=== PATIENT | male | born 1950 | race Caucasian/White ===

== ENCOUNTER 2022-05-17 14:39 | Day surgery (SDC) | payer MEDICARE ==
[2022-05-17] MEDS ORDERED: Depo-Medrol 40 MG/ML IM ONE (14:40)
[2022-05-17] MEDS ORDERED: XYLOCAINE-MPF 1% 5ML SDV IJ ONE (14:40)
[2022-05-17] MEDS ORDERED: Marcaine Mpf 0.5% Vial 30 Ml IJ ONE (14:40)
--- NOTE | 2022-05-17 19:43 | XRAY ---
Indication: Left SI joint injection. Intraoperative fluoroscopy provided for 12 seconds. 2 digital spot image submitted for interpretation demonstrates posterior needle tip projecting over the inferior left SI joint. Correlate with intraoperative findings/report. Incidental 2 intact left SI joint fusion screws.
--- NOTE | 2022-05-18 08:41 | XRAY ---
12 seconds of fluoroscopy was used in surgery for a left SI joint injection.
== END 2022-05-17 16:30 | disposition home or self-care (01) ==
LOC: SDC-PAIN 14:39
PROVIDERS: ATTEND Psychiatry & Neurology Pain Medicine
DX: M46.1 Sacroiliitis, not elsewhere classified (principal); Z79.899 Other long term (current) drug therapy
CPT/HCPCS: 27096; 72170; 77002; G0260; J1030

== ENCOUNTER 2022-08-16 11:28 | Day surgery (SDC) | payer MEDICARE ==
[2022-08-16] MEDS ORDERED: Xylocaine 1% Vial 30 ML PF IJ ONE (11:29)
[2022-08-16] MEDS ORDERED: Sodium Chloride 0.9(Preservative Free) 10 ML IJ ONE (11:29)
[2022-08-16] MEDS ORDERED: Depo-Medrol 40 MG/ML IM ONE (11:29)
--- NOTE | 2022-08-16 15:02 | XRAY ---
Indication: Lumbar RAFAEL. Intraoperative fluoroscopy provided for 19 seconds. 2 digital spot images submitted for interpretation demonstrates posterior needle tip projecting posterior to the last lumbar segment. Small amount of contrast injected for needle tip placement. Correlate with intraoperative findings/report.
--- NOTE | 2022-08-16 15:14 | XRAY ---
19 seconds of fluoroscopy was used in surgery for a lumbar RAFAEL.
== END 2022-08-16 13:54 | disposition home or self-care (01) ==
LOC: SDC-PAIN 11:28
PROVIDERS: ATTEND Psychiatry & Neurology Pain Medicine
DX: M54.16 Radiculopathy, lumbar region (principal); Z79.899 Other long term (current) drug therapy
CPT/HCPCS: 62323; 72100; 77003; J1030; J2001; Q9966

== ENCOUNTER 2023-01-24 12:55 | Day surgery (SDC) | payer MEDICARE ==
[2023-01-24] MEDS ORDERED: Depo-Medrol 40 MG/ML IM ONE (12:56)
[2023-01-24] MEDS ORDERED: LIDOCAINE HCL 2% 100 MG/5 ML IJ ONE (12:56)
[2023-01-24] MEDS ORDERED: DIPRIVAN 200 MG/20 ML IV ONE (14:43)
--- NOTE | 2023-01-24 15:24 | XRAY ---
Indication: Bilateral L4-S1 MBB. Intraoperative fluoroscopy provided for 6 seconds. Single digital spot image submitted for interpretation demonstrates posterior needle tips projecting over the expected left and right L4-S1 nerve roots. Correlate with intraoperative findings/report.
[2023-01-24] MEDS ORDERED: Lactated Ringers 1,000 ML IV ONE (15:47)
--- NOTE | 2023-01-24 16:42 | XRAY ---
6 seconds of fluoroscopy was used in surgery for a bilateral L4-S1 MBB.
== END 2023-01-24 15:15 | disposition home or self-care (01) ==
LOC: SDC-PAIN 12:55
PROVIDERS: ATTEND Psychiatry & Neurology Pain Medicine
DX: M47.816 Spondylosis without myelopathy or radiculopathy, lumbar region (principal); Z79.899 Other long term (current) drug therapy
CPT/HCPCS: 64493; 64494; 72020; 77002; J1030; J2704

== ENCOUNTER 2023-05-02 11:51 | Day surgery (SDC) | payer MEDICARE ==
[2023-05-02] MEDS ORDERED: BUPIVACAINE 0.5% VIAL IJ ONE (11:52)
[2023-05-02] MEDS ORDERED: Depo-Medrol 40 MG/ML IM ONE (11:52)
[2023-05-02] MEDS ORDERED: DIPRIVAN 200 MG/20 ML IV ONE (14:04)
--- NOTE | 2023-05-02 15:19 | XRAY ---
Indication: Bilateral L4-S1 MBB. Intraoperative fluoroscopy provided for 13 seconds. Single digital spot image submitted for interpretation demonstrates posterior needle tips projecting over the expected left and right L4-S1 nerve roots. Correlate with intraoperative findings/report.
--- NOTE | 2023-05-02 15:21 | XRAY ---
13 seconds of fluoroscopy was used in surgery for a bilateral L4-S1 MBB.
[2023-05-02] MEDS ORDERED: Lactated Ringers 1,000 ML IV ONE (15:25)
== END 2023-05-02 14:30 | disposition home or self-care (01) ==
LOC: SDC-PAIN 11:51
PROVIDERS: ATTEND Psychiatry & Neurology Pain Medicine
DX: M47.816 Spondylosis without myelopathy or radiculopathy, lumbar region (principal); Z79.899 Other long term (current) drug therapy
CPT/HCPCS: 64493; 64494; 72020; 77002; J1030; J2704

== ENCOUNTER 2023-12-05 13:11 | Day surgery (SDC) | payer MEDICARE ==
[2023-12-05] MEDS ORDERED: Depo-Medrol 40 MG/ML IM ONE (13:12)
[2023-12-05] MEDS ORDERED: Sodium Chloride 0.9(Preservative Free) 10 ML IJ ONE (13:12)
[2023-12-05] MEDS ORDERED: XYLOCAINE-MPF 1% 5ML SDV IJ ONE (13:12)
[2023-12-05] MEDS ORDERED: Lactated Ringers 1,000 ML IV ONE (13:53)
--- NOTE | 2023-12-05 15:13 | XRAY ---
22 seconds of fluoroscopy was used in surgery for a lumbar RAFAEL.
--- NOTE | 2023-12-05 15:13 | XRAY ---
Indication: Lumbar RAFAEL. Intraoperative fluoroscopy provided for 22 seconds. 2 digital spot images submitted for interpretation demonstrates posterior needle tip projecting posterior to lumbosacral junction interspace. Small amount of contrast injected for needle tip placement. Correlate with intraoperative findings/report. Incidental incompletely visualized left SI joint fusion hardware.
== END 2023-12-05 14:33 | disposition home or self-care (01) ==
LOC: SDC-PAIN 13:11
PROVIDERS: ATTEND Psychiatry & Neurology Pain Medicine
DX: M54.16 Radiculopathy, lumbar region (principal)
CPT/HCPCS: 62321; 72100; 77003; J1030; Q9966